=== PATIENT | male | born 1995 | race African-American/Black ===

== ENCOUNTER 2025-03-12 10:08 | Emergency (ER) | payer MEDICAID, OTHER ==
[~2025-03-12] VITALS: Ht 172.7 cm; Wt 62.8 kg
--- NOTE | 2025-03-12 11:57 | ED.PDOC ---
Musculoskeletal HPI Comments This is a 29 year-old male who presents to the ED via wheelchair with a chief complaint of L ankle pain S/P trauma yesterday at 1000. Patient reports having his leg crushed between X2 cages, with pain onset since. Patient reports some relief with Tylenol medication. Patient has no further complaints at this time and otherwise denies symptoms of LOC, fever, chills, dizziness, or N/V/D. Chief Complaint: Lower Extremity Time Seen by MD: 11:25 Reviewed Notes: Medications, Allergies Allergies: Coded Allergies: NO KNOWN ALLERGIES (Unverified , 03/12/25) Information Source: Patient Mode of Arrival: Wheelchair Location: Left Extremity Location: Ankle Timing: Days Prehospital treatment: None Severity: Moderate Pain: Moderate Circumstances: Altercation Onset of Symptoms: After Trauma Symptoms: Swelling, Pain Associated signs and symptoms: Ankle pain Past Medical History PAST MEDICAL HISTORY: Denies Surgical History: Denies all surgeries Family History Family History: Reviewed,noncontributory to illness, No family hx of Cancer, No family hx of DM, No family hx of Heart deo, No family hx of HTN, No family hx ofKidney deo, No family hx of Liver deo, No family hx of Lung deo, No family hx of Stroke Social History Smoker: Non-Smoker Alcohol: Denies ETOH Use Drugs: Denies Drug Use Lives In: Home Constitutional: denies: chills, diaphoresis, fatigue, fever, malaise, sweats, weakness, others EENTM: denies: blurred vision, double vision, ear bleeding, ear discharge, ear drainage, ear pain, ear ringing, eye pain, eye redness, hearing loss, mouth pain, mouth swelling, nasal discharge, nose bleeding, nose congestion, nose pain, photophobia, tearing, throat pain, throat swelling, voice changes, others Respiratory: denies: cough, hemoptysis, orthopnea, SOB at rest, shortness of breath, SOB with excertion, stridor, wheezing, others Cardiovascular: denies: chest pain, dizzy spells, diaphoresis, Dyspnea on exertion, edema, irregular heart beat, left arm pain, lightheadedness, palpitations, PND, syncope, others Gastrointestinal: denies: abdomen distended, abdominal pain, blood streaked bowels, constipated, diarrhea, dysphagia, difficulty swallowing, hematemesis, melena, nausea, poor appetite, poor fluid intake, rectal bleeding, rectal pain, vomiting, others Genitourinary: denies: burning, dysuria, flank pain, frequency, hematuria, in continence, penile discharge, penile sore, pain, testicle pain, testicle swelling, urgency, others Neurological: denies: dizziness, fainting, headache, left sided numbness, left sided weakness, numbness, paresthesia, pre-existing deficit, right sided numbness, right sided weakness, seizure, speech problems, tingling, tremors, weakness, others Musculoskeletal: reports: joint pain, joint swelling; denies: back pain, gout, muscle pain, muscle stiffness, neck pain, others Integumetry: denies: bruises, change in color, change in hair/nails, dryness, laceration, lesions, lumps, rash, wounds, others Allergic/Immunocompromised: denies: Difficulty Healing, Frequent Infections, Hives, Itching, others Hematologic/Lymphatic: denies: anemia, blood clots, easy bleeding, easy bruising, swollen glands, others Endocrine: denies: excessive hunger, excessive sweating, excessive thirst, excessive urination, flushing, intolerance to cold, intolerance to heat, unexplained weight gain, unexplained weight loss, others Psychiatric: denies: anxiety, bipolar disorder, depression, hopeless, panic disorder, schizophrenia, sleepless, suicidal, others All Other Systems: Reviewed and Negative Physical Exam General Appearance: No Apparent Distress HEENT: Pharynx Normal Neck: Normal Inspection Respiratory: No Respiratory Distress Cardiovascular: No Edema Breast Exam: Deferred Gastrointestinal: No Organomegaly Genitalia: Deferred Pelvic: Deferred Rectal: Deferred Extremities: Normal range of motion, Non-tender Neurologic: No Motor Deficits Cerebellar Function: NOT DONE Reflexes: NOT DONE Skin: Normal Color Lymphatic: NOT DONE Was a procedure done? Was a procedure done?: No Differential Diagnosis EXT Differential Diagnosis: Fracture, Sprain, Contusion X-Ray, Labs, Meds, VS Vital Signs Date Time Temp Pulse Resp B/P (MAP) Pulse Ox O2 Delivery O2 Flow Rate FiO2 03/12/25 12:23 98.0 67 16 112/73 (86) 98 98.0 03/12/25 10:11 98.4 75 19 117/74 99 98.4 [facility] [id number] [facility] [address] Ph: [phone] DIAGNOSTIC IMAGING Diagnostic Imaging Report : [id number] Signed PATIENT: RAMIRO MOYA ACCT: [id number] UNIT: [id number] : 1995 LOC: ER ROOM / BED: / AGE / SEX: 29 / M ADM STATUS: REG ER SERVICE 1122 ORDERING PHYSICIAN: LIZ MCGUIRE MD PROCEDURE(s): LANK2 - L ANKLE 2 VIEW XRAY REASON: left leg valadez ORDER NUMBER(s): [id number], ACCESSION NUMBER(s): [id number] CLINICAL INDICATION: left leg valadez TECHNIQUE: 2 radiographic views of the left ankle were obtained. Comparison: None FINDINGS/IMPRESSION: Total tibia and distal fibula are both intact and normal alignment. There are no fractures or dislocations. [place] [address] Ph: [phone] DIAGNOSTIC IMAGING Diagnostic Imaging Report : [id number] Signed PATIENT: RAMIRO MOYA ACCT: [id number] UNIT: [id number] : 1995 LOC: ER ROOM / BED: / AGE / SEX: 29 / M ADM STATUS: REG ER SERVICE 1122 ORDERING PHYSICIAN: LIZ MCGUIRE MD PROCEDURE(s): LTBFB - L TIB FIB XRAY REASON: left leg pain ORDER NUMBER(s): [id number], ACCESSION NUMBER(s): [id number] CLINICAL INDICATION: left leg pain TECHNIQUE: 2 radiographic views of the left tibia and fibula were obtained. Comparison: None FINDINGS/IMPRESSION: There are no fractures or dislocations. There are no radiopaque foreign bodies. Time of 1ST Reevaluation: 11:56 Reevaluation 1ST: Unchanged Patient Education/Counseling: Diagnosis, Treatment Family Education/Counseling: No Family Present Departure 1 Departure Time of Disposition: 12:46 (Patient's x-rays are benign. In my judgment patient likely sprained his ankle. We will discharge patient home with outpatient follow up) Impression: Primary Impression: Left ankle sprain Disposition: HOME / SELF CARE / HOMELESS Condition: Stable Referrals: JUAN STARR MD Additional Instructions: You sprained your ankle. Fortunately it is not broken on X-ray today. A sprain can hurt as much as a brake but heals much faster. You can ice your ankle as needed for pain. You can yulisa wrap your ankle as needed for pain. You can use crutches as needed. For pain you can take: 8am: Ibuprofen 400mg with food Noon: Tylenol 1000mg 4pm: Ibprofen 400mg with food 8pm: Tylenol 1000mg You were referred to our orthopedic surgeon to ensure you are healing well. Please call for an appointment within one week. If your symptoms worsen or you have any other concerns then please return to the ER. Discharged With: Self Critical Care Note Critical Care Time?: No Stability Stability form required: No Heart Score Heart Score: Heart Score Response (Comments) Value History N/A 0 EKG N/A 0 Age N/A 0 Risk Factors N/A 0 Troponin N/A 0 Total 0 I personally scribed for LIZ MCGUIRE MD ([employer]) on 03/12/25 at 11:57. Electronically submitted by Zoë Wynn ([employer]). I personally scribed for LIZ MCGUIRE MD ([employer]) on 03/12/25 at 12:45. Electronically submitted by Zoë Wynn ([employer]). LIZ MCGUIRE MD Mar 12, 2025 11:57
--- NOTE | 2025-03-12 12:04 | DVH ---
CLINICAL INDICATION: left leg valadez TECHNIQUE: 2 radiographic views of the left ankle were obtained. Comparison: None FINDINGS/IMPRESSION: Total tibia and distal fibula are both intact and normal alignment. There are no fractures or dislocations.
--- NOTE | 2025-03-12 12:09 | DVH ---
CLINICAL INDICATION: left leg pain TECHNIQUE: 2 radiographic views of the left tibia and fibula were obtained. Comparison: None FINDINGS/IMPRESSION: There are no fractures or dislocations. There are no radiopaque foreign bodies.
[2025-03-12 12:23] VITALS: BP 112/73; PULSE 67; RESP 16; TEMP 98; O2SAT 98
== END 2025-03-12 13:39 | disposition home or self-care (01) ==
LOC: ER 10:11
DX: S93.402A Sprain of unspecified ligament of left ankle, initial encounter (principal); X58.XXXA Exposure to other specified factors, initial encounter; Y93.89 Activity, other specified; Y92.89 Other specified places as the place of occurrence of the external cause; Y99.8 Other external cause status
CPT/HCPCS: 73590; 73600